=== PATIENT | female | born 1955 | race African-American/Black ===

== ENCOUNTER 2017-07-28 13:49 | Inpatient (IN) | payer OTHER ==
[~2017-07-28] VITALS: Ht 167.6 cm; Wt 68.8 kg
--- NOTE | ~2017-07-28 | EKG ---
[address] [place] [address] ELECTROCARDIOGRAM REPORT Name: SHUN MISTRY Room #: 170-2 ADM IN M.R.#: [id number] Admission: 07/28/17 Attend Phys: Uriel Ritter MD Discharge: Date of : 53 Report #: [id number] THIS REPORT FOR: //name// 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 MOTA : 1955 Requested By: Pamella Kinsey Order Number: [id number] MD: Stanley Patel Measurements Intervals [place] Rate: 95 P: 92 HI: 147 QRS: 30 QRSD: 101 T: 244 QT: 344 QTc: 433 Interpretive Statements Sinus rhythm Repol abnrm, severe global ischemia (LM/MVD) Compared to ECG 07/12/2012 16:04:56 Early repolarization now present Possible ischemia now present Left ventricular hypertrophy no longer present Electronically Signed On 07-28-2017 17:17:39 ITEM PROCESSOR by Stanley Patel [email or web address] <ELECTRONICALLY SIGNED> By: Stanley Patel MD 07/28/17 1717 1405 1405 Stanley Patel MD /EPI
[~2017-07-28 13:49] MED LIST: ASPIRIN325 OR; CARVEDILOL25 MG PO; EFFIENT10 MG PO; FLEXERIL PO; IMDUR 60 MG TAB60 M1 PO; LIPITOR20 MG; LIPITOR20 MG PO; LISINOPRIL20 MG PO; LOPRESSOR25 OR; MEDROLDOSEPACK PO; NAPROSYN500 MG PO; PERCOCET 5-3251 EACH PO; PREDNISONE50 MG PO; ZPAK PO
[2017-07-28 13:50] VITALS: BP 166/104
[2017-07-28] MEDS ORDERED: HUMALOG KW100 UNIT/1 (14:18)
[2017-07-28 14:20] LABS: ABSOLUTE NEUTROPHILS 6.9 thou/uL (1.4-8.2); EOSINOPHILS 0.8 % (0.0-3.0); HEMATOCRIT 32.8 % (37.0-47.0); HEMOGLOBIN 10.8 gm/dL (12.0-15.0); LYMPHOCYTES 13.5 % (24.0-44.0); MCH 32.6 pg (26.0-34.0); MCV 98.8 fL (80.0-100.0); MONOCYTES 10.4 % (1.0-8.0); PLATELET COUNT 231 thou/uL (150-400); POLYS 74.3 % (36.0-66.0); RBC 3.32 mil/uL (4.20-5.00); RDW 15.7 % (10.5-14.5); WBC 9.2 thou/uL (4.0-11.0)
[2017-07-28 14:32] LABS: ALBUMIN 2.4 g/dL (3.4-5.0); ANION GAP 8 mmol/L (7-16); BUN 3 mg/dL (7-18); CALCIUM 8.4 mg/dL (8.5-10.1); CHLORIDE 102 mmol/L (98-107); CO2 27 mmol/L (21-32); CREATININE 0.6 mg/dL (0.6-1.0); POTASSIUM 3.5 mmol/L (3.5-5.1); SGOT 45 U/L (15-37); SGPT 29 U/L (30-65); SODIUM 137 mmol/L (136-145); TOTAL BILIRUBIN 0.5 mg/dL (<0.1-1.0); TOTAL PROTEIN 7.3 g/dL (6.4-8.2); TROPONIN-I < 0.04 ng/mL (<0.06)
[2017-07-28 14:33] LABS: GLUCOSE 16 mg/dL (74-106)
[2017-07-28 15:22] LABS: URINE BILIRUBIN NEGATIVE (Negative); URINE BLOOD NEGATIVE (Negative); URINE CLARITY CLEAR; URINE COLOR YELLOW; URINE GLUCOSE-RANDOM* 1+ (Negative); URINE KETONES NEGATIVE (Negative); URINE LEUKOCYTES NEGATIVE (Negative); URINE NITRITE NEGATIVE (Negative); URINE PROTEIN (DIPSTICK) NEGATIVE (Negative); URINE SPECIFIC GRAVITY <= 1.005 (1.005-1.035); URINE UROBILINOGEN 0.2 E.U./dl (0.2-1.0)
[2017-07-28 19:15] VITALS: BP 132/81
[2017-07-28] MEDS ORDERED: CARVEDILOL3.125 MG PO (20:11)
[2017-07-28] MEDS ORDERED: METFORMIN HCL500 MG PO (20:11)
[2017-07-28] MEDS ORDERED: LANTUS100 UNIT/M (20:13)
[2017-07-28] MEDS ORDERED: HUMALOG100 UNIT/2 SQ (20:14)
[2017-07-28] MEDS ORDERED: ZENPEP DR 10,01 EACH PO (20:15)
[2017-07-28] MEDS ORDERED: ASPIR 8181 MG PO (20:16)
[2017-07-28] MEDS ORDERED: AMOXICILLIN 50500 MG PO (20:18)
[2017-07-28] MEDS ORDERED: OXYCONTIN10 M1 (20:18)
[2017-07-28 20:29] VITALS: BP 132/81
[2017-07-28 20:50] VITALS: BP 122/70
[2017-07-29 04:21] VITALS: BP 107/65
[2017-07-29 05:05] LABS: CALCIUM 7.6 mg/dL (8.5-10.1); CREATININE 0.6 mg/dL (0.6-1.0)
[2017-07-29 07:47] VITALS: BP 120/70
[2017-07-29] MEDS ORDERED: NICOTINE TRANSD14 M1 TRANSDERM (11:32)
[2017-07-29 13:27] VITALS: BP 120/70
[2017-07-29 23:08] LABS: C-PEPTIDE 0.4 ng/mL (1.1-4.4)
[2017-07-30 01:07] LABS: GLYCOHEMOGLOBIN (HGB A1C) 6.5 % (4.8-5.6)
== END 2017-07-29 14:30 | disposition home or self-care (01) | DRG 639 ==
LOC: ER 13:49 → EROBS 15:53 → 4S 19:53
PROVIDERS: Internal Medicine Endocrinology, Diabetes & Metabolism; Physician Assistant
DX: E11.649 Type 2 diabetes mellitus with hypoglycemia without coma (principal); I10 Essential (primary) hypertension; E78.00 Pure hypercholesterolemia, unspecified; F17.210 Nicotine dependence, cigarettes, uncomplicated; E78.5 Hyperlipidemia, unspecified; I25.10 Atherosclerotic heart disease of native coronary artery without angina pectoris; Z79.4 Long term (current) use of insulin; Z88.8 Allergy status to other drugs, medicaments and biological substances
CPT/HCPCS: 10100

== ENCOUNTER 2018-01-10 19:52 | Inpatient (IN) | payer OTHER ==
[~2018-01-10] VITALS: Ht 167.6 cm; Wt 59.4 kg
--- NOTE | ~2018-01-10 | HC ---
[facility] [place] [address] CONSULTATION Name: SHUN MISTRY Room #: 453-P ADM IN M.R.#: [id number] Admission: 01/10/18 Attend Phys: Bonilla Platt MD Discharge: Date of : 53 Report #: [id number] THIS REPORT FOR: //name// CC: Wesley Platt MD [facility] REASON FOR CONSULTATION: Cytopenia. HISTORY OF PRESENT ILLNESS: The patient is a 62-year-old female who has a complex history and is a very poor historian. She was at [facility] for one or several episodes in July and maybe September of this year; then she was at [facility] in October. We have records of both those admissions. She came in supposedly because she was found to have low blood sugar. In the Emergency Room here, she was found to have a white count of 3.7, hemoglobin 10.4, MCV of 97.4, platelets of 43,000. Then on the yesterday, white count of 3, hemoglobin 9.6, platelets of 38,000. Note that the differential on the was fairly nonacute. She has also since that time, had a TSH that is normal. CT head shows no evidence of acute intracranial hemorrhage, though there was some concern about right foot drop and right-sided weakness in the ER. She has also had folate that was found to be low at 1.1. Ferritin elevated at 1535. B12 was normal at 481. Peripheral smear review did not show any acute forms, though ANC was slightly low at 1.2. The patient denies any recent viral illnesses, had had about 100+ pound weight loss over the last year and a half and she said it has been stable for the last several weeks. Denies any recent headache. No new vision troubles. No new mouth sores. Does have a bit of a nosebleed this morning, but she has not had it before his AM. She denies any blood in the urine or stool. She does feel chronically short of air, has occasional cough, nonproductive. No chest pain. She is not aware of any lymph nodes or new abdominal pain, no new ankle swelling. PAST HISTORY: Appears to be notable for hypertension, cardiac cath with drug-eluting stents in 2010. Also, history of AFib in the past with rapid ventricular response, hypertension, hyperlipidemia, also admitted for septic shock, maybe back in September or October when she was at [facility]. Back on 07/25/2017, we had tests for hepatitis A, B and C and HIV that were negative. We have labs in September at [facility]; at one time, her white count was 7.1, platelets of 20,000; white count of 1.6 on 09/22/2017; then at a later date close to discharge on 09/28/2017, hemoglobin was 8.8, white count 12,000, platelets 147,000. During that time, B12 was normal, folate was normal. Flow cytometry did not show any monoclonal populations. At [facility] near time of admit on 10/16/2017, platelets were 134,000, hemoglobin 9.3. Later on at the time of discharge on about 11/10/2017, hemoglobin was 8, white count 11,300, platelets 286. If I understand right, she underwent a left total [facility] [address] [place] [address] CONSULTATION Name: SHUN MISTRY Room #: 453-P [facility] IN M.R.#: [id number] Admission: 01/10/18 Attend Phys: Bonilla Platt MD Discharge: Date of : 53 Report #: [id number] pulmonary decortication on about 10/16/2017 with the final granuloma cultures evidently returning negative. No sign of AFB. On maybe about 10/15/2017 or so, she had an endometrial biopsy for bleeding and the tissue came back benign if I understand correctly. Her most recent visits have been with Dr. Craven. She thinks she has had lab, but does not know the results. FAMILY HISTORY: No one else with any bleeding or blood disorder that she is aware of. 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 She still smokes, trying to quit. Maybe alcohol [address] PHYSICAL EXAMINATION: GENERAL: The patient appears her stated age. VITAL SIGNS: Height is 5 feet 6 inches, which is 167.6 cm; weight 131 pounds or 59.4 kilograms; O2 sat 100%; blood pressure 131/90; respirations 18; pulse 98%; temperature 98.3. HEENT: Dentition is poor. No petechiae or ecchymosis in her oropharynx. LUNGS: Actually fairly clear, may be slightly decreased on the left. LYMPHATICS: No enlarged lymph nodes in the supraclavicular, cervical, axillary or inguinal region. ABDOMEN: Slightly obese. No definite organomegaly. EXTREMITIES: Without clubbing, cyanosis. There is perhaps some trace edema. LABORATORY DATA: X-rays here included a chest x-ray that showed a complex, likely left pleural effusion. My guess is that this is related to past a thoracotomy scarring but will defer to others. She also had a CT head because of the transient process of the right lower extremity and right foot drop. No evidence of acute intracranial hemorrhage or acute intracranial abnormality. MEDICATIONS: At this time currently include ipratropium bromide respiratory therapy q.6, magnesium oxide 400 b.i.d., metoprolol 25 daily, aspirin 81 daily, atorvastatin calcium 10 daily, magnesium was given 1 time. Note that in the ER, her magnesium was low. ASSESSMENT AND PLAN: 1. Thrombocytopenia and leukopenia have been up and down several times in the last 6 months. This is significantly lower. No recent viral illness. The patient denies any new medication. She does not look like she is on any high risk medications, peripheral smear does not appear to be acute. Hopefully, this is related to some other viral type illness. We will also await peripheral smear. We will check a protime aPTT given low platelets and slight nosebleed. We will also check an immature platelet fraction to see if she is producing platelets. We will check retic count, may check ultrasound to see if her spleen is enlarged, but I would guess she has had complex imaging at [facility] and [facility] recently, they had not seen that. We will also check a platelet [facility] [address] [place] [address] CONSULTATION Name: SHUN MISTRY Room #: 453-P ADM IN M.R.#: [id number] Admission: 01/10/18 Attend Phys: Bonilla Platt MD Discharge: Date of : 53 Report #: [id number] antibody. Note that she had been on heparin subQ when she was over at [facility]. We will also follow serial blood counts. We will also get records from Dr. Craven to see what they have been most recently in his office. 2. History of diabetes and recent hyperglycemia. Defer to others. 3. History of atrial fibrillation and history of RVR, had evidently not been on anticoagulation per records from outside because of recent complex surgeries. 4. History of hypertension, metoprolol. 5. History of coronary artery disease with drug-eluting stents, aspirin. 6. Hyperlipidemia, atorvastatin. 7. History of left decortication on 10/16/2017, most likely explains finding on chest x-ray. 8. History of Pires esophagus, defer to others. 9. History of acute pancreatitis in the past. No evidence now. 10. History of weight loss, concerning. We are going to await complex imaging most likely done at [facility] and [facility]. We will follow with you. <ELECTRONICALLY SIGNED> By: Ham Yao MD 01/13/18 0835 [id number] Ham Yao MD /nt
[~2018-01-10 19:52] MED LIST changes: +AMOXICILLIN 50500 MG PO; +ASPIR 8181 MG PO; +CARVEDILOL3.125 MG PO; +HUMALOG KW100 UNIT/1; +HUMALOG100 UNIT/2 SQ; +LANTUS100 UNIT/M; +METFORMIN HCL500 MG PO; +NICOTINE TRANSD14 M1 TRANSDERM; +OXYCONTIN10 M1; +ZENPEP DR 10,01 EACH PO
[2018-01-10 19:53] VITALS: BP 102/70
[2018-01-10] MEDS ORDERED: TRAMADOL 50 MG50 MG PO (20:22)
[2018-01-10] MEDS ORDERED: LIPITOR10 MG PO (20:23)
[2018-01-10] MEDS ORDERED: MAGOX 400400 MG PO (20:24)
[2018-01-10] MEDS ORDERED: TOPROL XL25 MG PO (20:24)
[2018-01-10 20:39] LABS: ABSOLUTE NEUTROPHILS 1.8 thou/uL (1.4-8.2); BASOPHILS 1.1 % (0.0-2.0); HEMOGLOBIN 10.4 gm/dL (12.0-15.0); WBC 3.7 thou/uL (4.0-11.0)
[2018-01-10 20:40] LABS: HEMATOCRIT 30.7 % (37.0-47.0); LYMPHOCYTES 41.4 % (24.0-44.0); MCHC 33.9 g/dL (28.0-37.0); MCV 97.4 fL (80.0-100.0); MONOCYTES 6.6 % (1.0-8.0); POLYS 49.9 % (36.0-66.0); RBC 3.15 mil/uL (4.20-5.00); RDW 16.8 % (10.5-14.5)
[2018-01-10 20:47] LABS: CALCIUM 7.5 mg/dL (8.5-10.1); CREATININE 0.6 mg/dL (0.6-1.0)
[2018-01-10 20:49] LABS: POTASSIUM 2.4 mmol/L (3.5-5.1)
[2018-01-10 20:55] LABS: DIRECT BILIRUBIN 0.1 mg/dL (<0.1-0.3); TOTAL BILIRUBIN 0.2 mg/dL (<0.1-1.0); TOTAL PROTEIN 8.2 g/dL (6.4-8.2)
[2018-01-10 21:01] VITALS: BP 117/49
[2018-01-10 21:10] LABS: PLATELET COUNT 43 thou/uL (150-400)
[2018-01-10 21:32] VITALS: BP 113/76
[2018-01-10 21:55] LABS: URINE BILIRUBIN NEGATIVE (Negative); URINE BLOOD NEGATIVE (Negative); URINE CLARITY CLEAR; URINE COLOR YELLOW; URINE GLUCOSE-RANDOM* NEGATIVE (Negative); URINE KETONES NEGATIVE (Negative); URINE LEUKOCYTES NEGATIVE (Negative); URINE NITRITE NEGATIVE (Negative); URINE PROTEIN (DIPSTICK) NEGATIVE (Negative); URINE SPECIFIC GRAVITY <= 1.005 (1.005-1.035); URINE UROBILINOGEN 0.2 E.U./dl (0.2-1.0)
[2018-01-10 23:04] VITALS: BP 110/68
[2018-01-11 05:21] VITALS: BP 120/72
[2018-01-11 06:06] LABS: HEMOGLOBIN 9.6 gm/dL (12.0-15.0)
[2018-01-11 06:08] LABS: HEMATOCRIT 27.7 % (37.0-47.0); MCH 33.8 pg (26.0-34.0); MCHC 34.6 g/dL (28.0-37.0); MCV 97.7 fL (80.0-100.0); RBC 2.84 mil/uL (4.20-5.00); RDW 16.4 % (10.5-14.5)
[2018-01-11 06:18] LABS: CALCIUM 6.9 mg/dL (8.5-10.1); CREATININE 0.5 mg/dL (0.6-1.0); MAGNESIUM 1.5 mg/dL (1.8-2.4)
[2018-01-11 06:25] LABS: POTASSIUM 3.7 mmol/L (3.5-5.1)
[2018-01-11 08:43] VITALS: BP 143/80
[2018-01-11 10:26] LABS: % SATURATION 102 % (20-39); IRON 120 ug/dL (50-170); TIBC 118 ug/dL (250-450)
[2018-01-11 10:42] LABS: FOLIC ACID 1.1 ng/mL (8.6-58.9)
[2018-01-11 12:15] LABS: GLYCOHEMOGLOBIN (HGB A1C) 5.6 % (4.8-5.6)
[2018-01-11 16:00] VITALS: BP 125/80
[2018-01-11 19:39] VITALS: BP 133/74
[2018-01-12 01:09] LABS: HEMATOLOGY COMMENTS Note: (()); HEMOGLOBIN 9.3 g/dL (11.1-15.9)
[2018-01-12 04:22] VITALS: BP 122/60
[2018-01-12 08:38] VITALS: BP 131/90
[2018-01-12 11:09] LABS: ABSOLUTE NEUTROPHILS 1.9 thou/uL (1.4-8.2); ABSOLUTE RETIC COUNT 0.0378 10^6/uL; EOSINOPHILS 0.7 % (0.0-3.0); HEMATOCRIT 28.8 % (37.0-47.0); LYMPHOCYTES 35.5 % (24.0-44.0); MCH 33.6 pg (26.0-34.0); MCHC 34.6 g/dL (28.0-37.0); MCV 96.9 fL (80.0-100.0); MONOCYTES 9.5 % (1.0-8.0); OBSERVED RETIC COUNT 1.27 % (0.6-2.6); PLATELET COUNT 43 thou/uL (150-400); POLYS 53.3 % (36.0-66.0); RBC 2.97 mil/uL (4.20-5.00); RDW 16.4 % (10.5-14.5); WBC 3.6 thou/uL (4.0-11.0)
[2018-01-12 11:18] LABS: ALBUMIN 1.8 g/dL (3.4-5.0); CALCIUM 8.3 mg/dL (8.5-10.1); CREATININE 0.6 mg/dL (0.6-1.0); MAGNESIUM 1.5 mg/dL (1.8-2.4); TOTAL BILIRUBIN 0.6 mg/dL (<0.1-1.0); TOTAL PROTEIN 7.8 g/dL (6.4-8.2)
[2018-01-12 11:21] LABS: APTT 28.4 Seconds (24.5-32.8); INR 1.1; PROTIME 11.3 Seconds (9.3-11.4)
[2018-01-12 15:44] VITALS: BP 115/81
[2018-01-12 19:33] VITALS: BP 128/87
[2018-01-13 04:15] VITALS: BP 132/85
[2018-01-13 08:00] VITALS: BP 110/72
[2018-01-13 08:04] LABS: HEMOGLOBIN 8.3 gm/dL (12.0-15.0); MCH 33.7 pg (26.0-34.0); MCHC 34.5 g/dL (28.0-37.0); MCV 97.7 fL (80.0-100.0); RBC 2.45 mil/uL (4.20-5.00); RDW 16.5 % (10.5-14.5); WBC 4.4 thou/uL (4.0-11.0)
[2018-01-13 08:18] LABS: CREATININE 0.5 mg/dL (0.6-1.0); MAGNESIUM 1.3 mg/dL (1.8-2.4); POTASSIUM 3.8 mmol/L (3.5-5.1)
[2018-01-13 15:54] VITALS: BP 107/68
[2018-01-13 19:12] VITALS: BP 107/52
[2018-01-14 04:20] VITALS: BP 117/66
[2018-01-14 05:49] LABS: HEMATOCRIT 24.9 % (37.0-47.0); HEMOGLOBIN 8.3 gm/dL (12.0-15.0); MCH 33.3 pg (26.0-34.0); MCHC 33.5 g/dL (28.0-37.0); MCV 99.4 fL (80.0-100.0); RBC 2.5 mil/uL (4.20-5.00); RDW 16.6 % (10.5-14.5); WBC 5.1 thou/uL (4.0-11.0)
[2018-01-14 06:05] LABS: CALCIUM 8.1 mg/dL (8.5-10.1); CREATININE 0.6 mg/dL (0.6-1.0); MAGNESIUM 1.5 mg/dL (1.8-2.4); POTASSIUM 3.8 mmol/L (3.5-5.1)
[2018-01-14 08:00] VITALS: BP 115/71
[2018-01-14 12:32] VITALS: BP 115/71
== END 2018-01-14 12:58 | disposition home or self-care (01) | DRG 637 ==
LOC: ER 19:52 → EROBS 21:15 → 4W 21:15
PROVIDERS: Emergency Medicine; Internal Medicine; Internal Medicine Hematology & Oncology; Nurse Practitioner Acute Care
DX: E11.649 Type 2 diabetes mellitus with hypoglycemia without coma (principal); J86.9 Pyothorax without fistula; D61.818 Other pancytopenia; E44.0 Moderate protein-calorie malnutrition; E11.51 Type 2 diabetes mellitus with diabetic peripheral angiopathy without gangrene; I50.9 Heart failure, unspecified; I11.0 Hypertensive heart disease with heart failure; F17.210 Nicotine dependence, cigarettes, uncomplicated; E87.6 Hypokalemia; E83.42 Hypomagnesemia; I48.91 Unspecified atrial fibrillation; E78.5 Hyperlipidemia, unspecified; E66.9 Obesity, unspecified; I25.10 Atherosclerotic heart disease of native coronary artery without angina pectoris; M21.371 Foot drop, right foot; R04.0 Epistaxis; Z68.21 Body mass index [BMI] 21.0-21.9, adult; Z95.5 Presence of coronary angioplasty implant and graft; Z79.4 Long term (current) use of insulin; Z79.82 Long term (current) use of aspirin; Z79.899 Other long term (current) drug therapy; Z88.8 Allergy status to other drugs, medicaments and biological substances
CPT/HCPCS: 10045

== ENCOUNTER 2019-06-20 13:25 | Emergency (ER) | payer OTHER ==
[~2019-06-20] VITALS: Ht 167.6 cm; Wt 57.6 kg
[~2019-06-20 13:25] MED LIST changes: +LIPITOR10 MG PO; +MAGOX 400400 MG PO; +TOPROL XL25 MG PO; +TRAMADOL 50 MG50 MG PO
[2019-06-20 14:39] LABS: URINE BILIRUBIN NEGATIVE (Negative); URINE BLOOD NEGATIVE (Negative); URINE CLARITY CLEAR; URINE COLOR YELLOW; URINE GLUCOSE-RANDOM* NEGATIVE (Negative); URINE KETONES NEGATIVE (Negative); URINE LEUKOCYTES-REFLEX TRACE (Negative); URINE NITRITE-REFLEX NEGATIVE (Negative); URINE PROTEIN (DIPSTICK) NEGATIVE (Negative); URINE SPECIFIC GRAVITY 1.025 (1.005-1.035); URINE UROBILINOGEN 0.2 E.U./dl (0.2-1.0)
[2019-06-20 14:39] LABS: ABSOLUTE NEUTROPHILS 8.9 thou/uL (1.4-8.2); BASOPHILS 0.8 % (0.0-2.0); EOSINOPHILS 0.5 % (0.0-3.0); HEMOGLOBIN 12.7 gm/dL (12.0-15.0); LYMPHOCYTES 18.4 % (24.0-44.0); MCH 30.5 pg (26.0-34.0); MCHC 32.7 g/dL (28.0-37.0); MCV 93.3 fL (80.0-100.0); MONOCYTES 7.1 % (1.0-8.0); POLYS 73.2 % (36.0-66.0); RBC 4.18 mil/uL (4.20-5.00); RDW 14.3 % (10.5-14.5); WBC 12.2 thou/uL (4.0-11.0)
[2019-06-20 14:47] LABS: CALCIUM 10.2 mg/dL (8.5-10.1); CREATININE 0.9 mg/dL (0.6-1.0)
[2019-06-20 14:54] LABS: ALBUMIN 3.6 g/dL (3.4-5.0); TOTAL BILIRUBIN 0.5 mg/dL (<0.1-1.0); TOTAL PROTEIN 8.7 g/dL (6.4-8.2)
[2019-06-20 15:04] LABS: LARGE PLATELETS RARE; PLATELET COUNT 115 thou/uL (150-400)
[2019-06-20 15:10] LABS: BE(vivo) -0.8 mmol/L (-2 to +3); HCO3 27.3 mmol/L (22.0-26.0); PCO2 VENOUS 58.7 mmHg (41.0-51.0); PO2 VENOUS 22.6 mmHg (35.0-45.0)
[2019-06-20 16:52] VITALS: BP 118/72
== END 2019-06-20 16:53 | disposition home or self-care (01) ==
LOC: ER 13:25
PROVIDERS: Nurse Practitioner Family
DX: E11.65 Type 2 diabetes mellitus with hyperglycemia (principal); J44.9 Chronic obstructive pulmonary disease, unspecified; I25.10 Atherosclerotic heart disease of native coronary artery without angina pectoris; F17.210 Nicotine dependence, cigarettes, uncomplicated; G89.29 Other chronic pain; I11.0 Hypertensive heart disease with heart failure; I50.9 Heart failure, unspecified; E78.00 Pure hypercholesterolemia, unspecified; Z79.899 Other long term (current) drug therapy; Z79.82 Long term (current) use of aspirin; Z95.5 Presence of coronary angioplasty implant and graft